=== PATIENT | male | born 1955 | race Caucasian/White ===

== ENCOUNTER 2017-12-26 18:09 | Inpatient (IN) | payer OTHER, SELFPAY ==
[~2017-12-26] VITALS: Ht 180.3 cm; Wt 100.4 kg
[2017-12-26] MEDS ORDERED: BENA20TA4 PO (18:35)
[2017-12-26] MEDS ORDERED: METO25TA35 PO (18:36)
[2017-12-26 18:42] LABS: BASOPHILS # (AUTO) 0.05 x10^3/uL (0-0.1); BASOPHILS % (AUTO) 1 % (0-1); EOSINOPHILS % (AUTO) 3 % (1-7); LYMPHOCYTES # (AUTO) 1.72 x10^3/uL (1-3.4); LYMPHOCYTES % (AUTO) 19 % (22-44); MD NO; MEAN CORPUSCULAR HGB CONC 33.3 g/dL (33.2-36.2); MEAN PLATELET VOLUME 10.2 fL (7.4-10.4); MONOCYTES # (AUTO) 0.73 x10^3/uL (0.2-0.8); MONOCYTES % (AUTO) 8 % (2-9); NEUTROPHILS # (AUTO) 6.33 x10^3/uL (1.8-6.8); NEUTROPHILS % (AUTO) 69 % (42-75); PLATELET COUNT 178 x10^3/uL (130-400); RED BLOOD COUNT 4.78 x10^6/uL (4.38-5.82); RED CELL DISTRIBUTION WIDTH 13.4 % (9.4-14.8)
[2017-12-26] MEDS ORDERED: DILTIAZEM 5 MG/ML, 5ML ONE (18:44)
[2017-12-26 18:50] LABS: INTERNATIONAL NORMALIZED RATIO 1.23 (0.93-1.1); PROTHROMBIN TIME 12.9 Seconds (9.6-11.5)
[2017-12-26 18:51] LABS: ALANINE AMINOTRANSFERASE 43 U/L (12-78); ALBUMIN 3.2 g/dL (3.4-5.0); ANION GAP 9 mmol/L (5-15); CALCIUM 8.1 mg/dL (8.5-10.1); CHLORIDE 111 mmol/L (98-107)
[2017-12-26 18:56] LABS: ALKALINE PHOSPHATASE 84 U/L (45-117); BILIRUBIN,TOTAL 0.6 mg/dL (0.2-1.0); FREE T4 (FREE THYROXINE) 1.31 ng/dL (0.76-1.46); TOTAL PROTEIN 6.3 g/dL (6.4-8.2); TROPONIN I < 0.015 ng/mL (0.000-0.045)
[2017-12-26] MEDS ORDERED: DILTIAZEM 5 MG/ML, 5ML IVPush ONE (19:00)
[2017-12-26] MEDS ORDERED: FUROSEMIDE 40 MG/4 ML IV ONE (19:30)
[2017-12-26] MEDS ORDERED: FUROSEMIDE 40 MG/4 ML ONE (19:39)
[2017-12-26] MEDS ORDERED: SODIUM CHLORIDE 0.9% 1,000 ML IV SCH (20:14)
[2017-12-26] MEDS ORDERED: ACETAMINOPHEN 325 MG TABLET PO PRN (20:30)
[2017-12-26] MEDS ORDERED: ENOXAPARIN 40 MG/0.4 ML SQ SCH (20:30)
[2017-12-26] MEDS ORDERED: POLYETHYLENE GLYCOL 17 GM PACKET PO PRN (20:30)
[2017-12-26] MEDS ORDERED: ONDANSETRON 2MG/ML, 2ML IVPush PRN (20:30)
[2017-12-26] MEDS: METOPROLOL TARTRATE 25 MG TABLET PO SCH (21:47)
[2017-12-26] MEDS: DILTIAZEM 125 MG in SODIUM CHLORIDE 0.9% 100 ML IV SCH (22:04)
[2017-12-26 22:19] VITALS: BP 148/81
[2017-12-26 23:19] LABS: TROPONIN I 0.017 ng/mL (0.000-0.045)
[2017-12-27 00:37] VITALS: BP 110/77
[2017-12-27 02:24] VITALS: BP 111/75
[2017-12-27] MEDS: METOPROLOL TARTRATE 25 MG TABLET PO SCH ×2 (02:24→09:50)
[2017-12-27 05:40] LABS: CHOL/HDL RATIO 3.9; CHOLESTEROL, TOTAL 121 mg/dL (140-239); HDL CHOL % 26 % (26-37); HDL CHOLESTEROL (DIRECT) 31 mg/dL (40-60); LDL CHOLESTEROL,CALCULATED 77 mg/dL (54-169); LDL/HDL RATIO 2.5 (0.5-3.0); TRIGLYCERIDES 64 mg/dL (50-200); TROPONIN I < 0.015 ng/mL (0.000-0.045); VLDL CHOLESTEROL 13 mg/dL (0-25)
[2017-12-27] MEDS: ASPIRIN 325 MG TABLET EC PO SCH (05:40)
[2017-12-27] MEDS: DILTIAZEM 125 MG in SODIUM CHLORIDE 0.9% 100 ML IV SCH (06:16)
[2017-12-27 07:00] VITALS: BP 132/74
[2017-12-27] MEDS ORDERED: REGADENOSON 0.4 MG/5 ML SYRINGE ONE (07:34)
[2017-12-27 07:53] VITALS: BP 116/82
[2017-12-27] MEDS: APIXABAN 5 MG TABLET PO SCH ×2 (09:56→20:44)
[2017-12-27 13:48] VITALS: BP 120/87
[2017-12-27] MEDS ORDERED: ASPI-650 PO ×2 (14:14)
[2017-12-27] MEDS ORDERED: APIX5TAB PO (14:14)
[2017-12-27] MEDS ORDERED: METO25TA35 PO ×2 (14:14)
[2017-12-27] MEDS: METOPROLOL TARTRATE 50 MG TABLET PO SCH (17:15)
[2017-12-27 20:13] VITALS: BP 121/87
[2017-12-27] MEDS: ZOLPIDEM 5MG TABLET PO PRN (20:44)
[2017-12-28] MEDS: DILTIAZEM 5 MG/ML, 5ML IVPush PRN ×4 (01:34→15:07)
[2017-12-28 01:43] VITALS: BP 129/96
[2017-12-28] MEDS: ASPIRIN 325 MG TABLET EC PO SCH (05:38)
[2017-12-28] MEDS: METOPROLOL TARTRATE 50 MG TABLET PO SCH ×2 (05:38→18:12)
[2017-12-28] MEDS ORDERED: DIGOXIN 0.25 MG/ML, 2ML IVPush ONE ×2 (08:30→14:00)
[2017-12-28 08:49] VITALS: BP 129/96
[2017-12-28] MEDS: APIXABAN 5 MG TABLET PO SCH ×2 (10:14→20:33)
[2017-12-28 13:48] VITALS: BP 112/75
[2017-12-28] MEDS ORDERED: DIGOXIN 0.25 MG/ML, 2ML IVPush SCH (14:30)
[2017-12-28] MEDS ORDERED: VERAPAMIL 2.5 MG/ML, 2ML IVPush PRN (16:30)
[2017-12-28 18:11] VITALS: BP 121/87
[2017-12-28 19:50] VITALS: BP 134/88
[2017-12-28] MEDS: ZOLPIDEM 5MG TABLET PO PRN (20:33)
[2017-12-28] MEDS: ATORVASTATIN 10 MG TABLET PO SCH (20:33)
[2017-12-29 00:47] VITALS: BP 134/92
[2017-12-29 04:48] VITALS: BP 127/84
[2017-12-29] MEDS: ASPIRIN 325 MG TABLET EC PO SCH (04:50)
[2017-12-29] MEDS: METOPROLOL TARTRATE 50 MG TABLET PO SCH ×2 (04:50→17:29)
[2017-12-29 08:23] VITALS: BP 129/89
[2017-12-29] MEDS: APIXABAN 5 MG TABLET PO SCH ×2 (08:36→20:31)
[2017-12-29] MEDS ORDERED: DIGOXIN 0.25 MG/ML, 2ML IVPush SCH (09:00)
[2017-12-29] MEDS: AMIODARONE 200 MG TABLET PO SCH ×3 (10:09→20:32)
[2017-12-29] MEDS: DILTIAZEM 5 MG/ML, 5ML IVPush PRN (13:37)
[2017-12-29] MEDS: morphine SULFATE 10 MG/ML, 1ML IVPush PRN ×2 (13:44→20:32)
[2017-12-29 16:38] VITALS: BP 155/103
[2017-12-29 20:30] VITALS: BP 134/97
[2017-12-29] MEDS: ATORVASTATIN 10 MG TABLET PO SCH (20:32)
[2017-12-29] MEDS: ZOLPIDEM 5MG TABLET PO PRN (21:43)
[2017-12-30 01:52] VITALS: BP 137/91
[2017-12-30] MEDS: METOPROLOL TARTRATE 50 MG TABLET PO SCH ×2 (05:49→17:11)
[2017-12-30] MEDS: morphine SULFATE 10 MG/ML, 1ML IVPush PRN ×3 (05:49→20:36)
[2017-12-30] MEDS: ASPIRIN 325 MG TABLET EC PO SCH (05:50)
[2017-12-30 08:37] VITALS: BP 133/90
[2017-12-30] MEDS: AMIODARONE 200 MG TABLET PO SCH ×3 (08:52→20:36)
[2017-12-30] MEDS: APIXABAN 5 MG TABLET PO SCH ×2 (08:52→20:36)
[2017-12-30] MEDS: ASPIRIN 81 MG TABLET EC PO SCH (09:00)
[2017-12-30] MEDS: INDOMETHACIN ER 75 MG CAPSULE PO SCH (11:14)
[2017-12-30] MEDS ORDERED: CYCLOBENZAPRINE 10 MG TABLET PO PRN (13:30)
[2017-12-30 15:58] VITALS: BP 142/99
[2017-12-30 20:26] VITALS: BP 135/96
[2017-12-30] MEDS: ATORVASTATIN 10 MG TABLET PO SCH (20:36)
[2017-12-30] MEDS: ZOLPIDEM 5MG TABLET PO PRN (20:49)
[2017-12-31 01:59] VITALS: BP 129/73
[2017-12-31 04:55] LABS: BASOPHILS # (AUTO) 0.03 x10^3/uL (0-0.1); BASOPHILS % (AUTO) 1 % (0-1); EOSINOPHILS % (AUTO) 6 % (1-7); LYMPHOCYTES # (AUTO) 1.39 x10^3/uL (1-3.4); LYMPHOCYTES % (AUTO) 20 % (22-44); MD NO; MEAN CORPUSCULAR HEMOGLOBIN 31.1 pg (27.5-34.5); MEAN CORPUSCULAR HGB CONC 33.9 g/dL (33.2-36.2); MEAN CORPUSCULAR VOLUME 91.8 fL (81-97); MEAN PLATELET VOLUME 9.8 fL (7.4-10.4); MONOCYTES # (AUTO) 0.88 x10^3/uL (0.2-0.8); MONOCYTES % (AUTO) 12 % (2-9); NEUTROPHILS # (AUTO) 4.43 x10^3/uL (1.8-6.8); NEUTROPHILS % (AUTO) 62 % (42-75); PLATELET COUNT 160 x10^3/uL (130-400); RED BLOOD COUNT 5.06 x10^6/uL (4.38-5.82); RED CELL DISTRIBUTION WIDTH 12.9 % (9.4-14.8)
[2017-12-31 05:02] LABS: ANION GAP 9 mmol/L (5-15); CALCIUM 8.3 mg/dL (8.5-10.1); CHLORIDE 110 mmol/L (98-107); CREATININE 1.07 mg/dL (0.7-1.3)
[2017-12-31] MEDS: ASPIRIN 81 MG TABLET EC PO SCH (05:25)
[2017-12-31] MEDS: METOPROLOL TARTRATE 50 MG TABLET PO SCH ×2 (05:27→16:44)
[2017-12-31] MEDS: morphine SULFATE 10 MG/ML, 1ML IVPush PRN ×2 (05:32→14:15)
[2017-12-31 06:45] VITALS: BP 122/86
[2017-12-31] MEDS: INDOMETHACIN ER 75 MG CAPSULE PO SCH (07:51)
[2017-12-31] MEDS: AMIODARONE 200 MG TABLET PO SCH ×3 (07:51→21:00)
[2017-12-31] MEDS: APIXABAN 5 MG TABLET PO SCH ×2 (07:51→21:00)
[2017-12-31] MEDS: COLCHICINE 0.6 MG TABLET PO SCH (07:51)
[2017-12-31 12:23] VITALS: BP 132/92
[2017-12-31 19:02] VITALS: BP 122/84
[2017-12-31] MEDS: ATORVASTATIN 10 MG TABLET PO SCH (21:00)
[2017-12-31] MEDS: ZOLPIDEM 5MG TABLET PO PRN (21:00)
[2018-01-01 01:22] VITALS: BP 108/70
[2018-01-01] MEDS: ASPIRIN 81 MG TABLET EC PO SCH (05:19)
[2018-01-01] MEDS: METOPROLOL TARTRATE 50 MG TABLET PO SCH (05:19)
[2018-01-01 07:00] VITALS: BP 124/84
[2018-01-01] MEDS ORDERED: METOPROLOL SUCCINATE 100 MG TAB.ER.24H PO SCH (07:30)
[2018-01-01] MEDS ORDERED: LISINOPRIL 10 MG TABLET PO ONE (07:30)
[2018-01-01] MEDS: COLCHICINE 0.6 MG TABLET PO SCH (08:35)
[2018-01-01] MEDS: APIXABAN 5 MG TABLET PO SCH (08:35)
[2018-01-01] MEDS: AMIODARONE 200 MG TABLET PO SCH (08:35)
[2018-01-01] MEDS: INDOMETHACIN ER 75 MG CAPSULE PO SCH (08:36)
[2018-01-01 13:48] VITALS: BP 123/87
[2018-01-01] MEDS ORDERED: ASPI-621 PO (13:52)
[2018-01-01] MEDS ORDERED: ATOR10TA9 PO (13:52)
[2018-01-01] MEDS ORDERED: METO-95 PO (13:52)
[2018-01-01] MEDS ORDERED: AMIO200T42 PO (13:52)
== END 2018-01-01 15:28 | disposition home or self-care (01) | DRG 308 ==
LOC: ED 19:01 → EDIP 19:41 → 5SO 20:36 → DCLOUNGE 01-01 15:13
PROVIDERS: ADMIT Hospitalist; ATTEND Hospitalist
PROC: B245ZZ4 Ultrasonography of Left Heart, Transesophageal (ICD-10-PCS; principal; 2017-12-26)
PROC: 5A2204Z Restoration of Cardiac Rhythm, Single (ICD-10-PCS; 2017-12-26)
DX: I48.0 Paroxysmal atrial fibrillation (principal); I50.43 Acute on chronic combined systolic (congestive) and diastolic (congestive) heart failure; D68.69 Other thrombophilia; E44.0 Moderate protein-calorie malnutrition; I42.9 Cardiomyopathy, unspecified; I08.1 Rheumatic disorders of both mitral and tricuspid valves; I25.10 Atherosclerotic heart disease of native coronary artery without angina pectoris; G89.29 Other chronic pain; M54.9 Dorsalgia, unspecified; I27.20 Pulmonary hypertension, unspecified; M10.9 Gout, unspecified; Z87.891 Personal history of nicotine dependence; Z95.1 Presence of aortocoronary bypass graft; Z68.30 Body mass index [BMI] 30.0-30.9, adult
CPT/HCPCS: 36415; 71045; 78452; 80048; 80053; 80061; 83880; 84439; 84443; 84484; 84550; 85025; 85610; 85730; 92960; 93005; 93017; 93306; 93312; 93320; 93325; 96372; 96374; 96375; G0378; J1650; J1940; J2785; A9502; C9898; J1160; J2270; J7030; J7512

== ENCOUNTER 2018-02-11 07:34 | Day surgery (SDC) | payer OTHER ==
[~2018-02-11] VITALS: Ht 180.3 cm; Wt 97.7 kg
[~2018-02-11 07:34] MED LIST: AMIO200T42 PO; APIX5TAB PO; ASPI-650 PO; ASPI81TA45 PO; ATOR10TA9 PO; BENA20TA4 PO; METO-95 PO; METO25TA35 PO
[2018-02-11 08:11] VITALS: BP 126/96
[2018-02-11] MEDS ORDERED: AMIO200T42 PO (08:19)
[2018-02-11] MEDS ORDERED: BENA20TA4 PO (08:19)
[2018-02-11] MEDS ORDERED: ASPI81TA45 PO (08:24)
[2018-02-11 08:30] LABS: ANION GAP 6 mmol/L (5-15); CALCIUM 8.5 mg/dL (8.5-10.1); CHLORIDE 111 mmol/L (98-107); CREATININE 1.07 mg/dL (0.7-1.3)
[2018-02-11] MEDS ORDERED: PROPOFOL 10 MG/ML, 20ML ONE (09:18)
== END 2018-02-11 10:07 | disposition home or self-care (01) ==
LOC: CACL 07:34
PROVIDERS: ATTEND Internal Medicine Cardiovascular Disease
DX: I48.91 Unspecified atrial fibrillation (principal); I25.10 Atherosclerotic heart disease of native coronary artery without angina pectoris; I10 Essential (primary) hypertension; I42.9 Cardiomyopathy, unspecified; I34.0 Nonrheumatic mitral (valve) insufficiency; E78.2 Mixed hyperlipidemia; Z95.1 Presence of aortocoronary bypass graft; Z98.890 Other specified postprocedural states; Z88.0 Allergy status to penicillin
CPT/HCPCS: 36415; 80048; 92960; 93005; J2704

== ENCOUNTER 2018-04-12 10:10 | Day surgery (SDC) | payer OTHER ==
[~2018-04-12] VITALS: Ht 177.8 cm; Wt 96.8 kg
[~2018-04-12 10:10] MED LIST changes: -BENA20TA4 PO; +BENA20TA54 PO
[2018-04-12] MEDS ORDERED: SODIUM CHLORIDE 0.9% 1,000 ML IV SCH (10:30)
[2018-04-12 10:39] VITALS: BP 125/76
[2018-04-12] MEDS ORDERED: PLEASE ENTER HEIGHT AND WEIGHT MC SCH (11:00)
[2018-04-12] MEDS ORDERED: PROPOFOL 10 MG/ML, 20ML ONE (11:53)
== END 2018-04-12 14:37 | disposition home or self-care (01) ==
LOC: CACL 10:10
PROVIDERS: ATTEND Internal Medicine Cardiovascular Disease
DX: I34.0 Nonrheumatic mitral (valve) insufficiency (principal); I48.91 Unspecified atrial fibrillation; I10 Essential (primary) hypertension; I25.10 Atherosclerotic heart disease of native coronary artery without angina pectoris; I42.9 Cardiomyopathy, unspecified; E78.2 Mixed hyperlipidemia; Z79.82 Long term (current) use of aspirin
CPT/HCPCS: 93312; 93325; J2704; 93321

== ENCOUNTER 2018-04-29 09:53 | Day surgery (SDC) | payer OTHER ==
[~2018-04-29] VITALS: Ht 180.3 cm; Wt 97.7 kg
[2018-04-29 10:24] VITALS: BP 119/72
[2018-04-29] MEDS ORDERED: LIDOCAINE 2%, 20ML ONE (13:04)
[2018-04-29] MEDS ORDERED: BIVALIRUDIN 250 MG ONE (13:04)
[2018-04-29] MEDS ORDERED: FENTANYL PF 100 MCG/2ML ONE (13:04)
[2018-04-29] MEDS ORDERED: VERAPAMIL 2.5 MG/ML, 2ML ONE (13:04)
[2018-04-29] MEDS ORDERED: MIDAZOLAM 1 MG/ML, 5ML ONE (13:04)
[2018-04-29] MEDS ORDERED: HEPARIN 1,000 UNITS/ML, 10ML ONE (13:04)
[2018-04-29] MEDS ORDERED: SODIUM CHLORIDE 0.9% 1,000 ML IV SCH (14:30)
== END 2018-04-29 16:55 | disposition home or self-care (01) ==
LOC: CACL 09:53
PROVIDERS: ATTEND Internal Medicine Cardiovascular Disease
DX: I25.10 Atherosclerotic heart disease of native coronary artery without angina pectoris (principal); I34.0 Nonrheumatic mitral (valve) insufficiency; I48.91 Unspecified atrial fibrillation; E78.5 Hyperlipidemia, unspecified; I10 Essential (primary) hypertension; I42.9 Cardiomyopathy, unspecified; Z95.1 Presence of aortocoronary bypass graft; Z79.82 Long term (current) use of aspirin
CPT/HCPCS: 93459; 99156; 99157; C1760; C1769; C1894; J2250; J3010; J3490; Q9967; J0583; J1644

== ENCOUNTER → 2018-06-12 | Outpatient (CLI) | payer OTHER ==
[~2018-06-12] MED LIST changes: +OMNIPAQUE 350 MG/ML, 100ML BOTTLE ONE
== END | disposition home or self-care (01) ==
LOC: CFH 14:24
PROVIDERS: ATTEND Thoracic Surgery (Cardiothoracic Vascular Surgery)
DX: I51.7 Cardiomegaly (principal); I25.10 Atherosclerotic heart disease of native coronary artery without angina pectoris; Z95.1 Presence of aortocoronary bypass graft
CPT/HCPCS: 71275; Q9967

== ENCOUNTER 2018-06-28 04:16 | Inpatient (IN) | payer OTHER ==
[2018-06-27 11:56] LABS: MICROSCOPIC NOT IND
[2018-06-27 13:09] LABS: ALBUMIN 3.9 g/dL (3.4-5.0); ANION GAP 9 mmol/L (5-15); CALCIUM 8.6 mg/dL (8.5-10.1); CHLORIDE 111 mmol/L (98-107)
[2018-06-27 13:11] LABS: BASOPHILS # (AUTO) 0.04 x10^3/uL (0-0.1); BASOPHILS % (AUTO) 1 % (0-1); EOSINOPHILS # (AUTO) 0.28 x10^3/uL (0-0.4); EOSINOPHILS % (AUTO) 4 % (1-7); LYMPHOCYTES # (AUTO) 1.26 x10^3/uL (1-3.4); LYMPHOCYTES % (AUTO) 20 % (22-44); MD NO; MEAN CORPUSCULAR HEMOGLOBIN 32.9 pg (27.5-34.5); MEAN CORPUSCULAR HGB CONC 33.6 g/dL (33.2-36.2); MEAN PLATELET VOLUME 10.3 fL (7.4-10.4); MONOCYTES # (AUTO) 0.69 x10^3/uL (0.2-0.8); MONOCYTES % (AUTO) 11 % (2-9); NEUTROPHILS # (AUTO) 4.11 x10^3/uL (1.8-6.8); NEUTROPHILS % (AUTO) 65 % (42-75); PLATELET COUNT 134 x10^3/uL (130-400); RED BLOOD COUNT 5.15 x10^6/uL (4.38-5.82); RED CELL DISTRIBUTION WIDTH 13.4 % (9.4-14.8)
[2018-06-27 13:13] LABS: ALANINE AMINOTRANSFERASE 22 U/L (12-78); ALKALINE PHOSPHATASE 72 U/L (45-117); BILIRUBIN,TOTAL 0.4 mg/dL (0.2-1.0); CREATININE 1.05 mg/dL (0.7-1.3)
[2018-06-27 13:17] LABS: HEMOGLOBIN A1C 5.2 % (4.2-6.3)
[2018-06-27 13:25] LABS: INTERNATIONAL NORMALIZED RATIO 1.03 (0.93-1.1); PROTHROMBIN TIME 10.8 Seconds (9.6-11.5)
[~2018-06-28] VITALS: Ht 180.3 cm; Wt 106.6 kg
[~2018-06-28 04:16] MED LIST changes: +ACET650T10 PO; +CETI10CA PO; -OMNIPAQUE 350 MG/ML, 100ML BOTTLE ONE
[2018-06-28 04:42] VITALS: BP_SYST 158; BP_SYST 160; BP_DIAS 101; BP_DIAS 92
[2018-06-28] MEDS ORDERED: DO NOT GIVE MC SCH (06:00)
[2018-06-28] MEDS ORDERED: CHLORHEXIDINE 15 ML UDC MM SCH (06:00)
[2018-06-28] MEDS ORDERED: INSULIN LISPRO 100 UNITS/ML, PEN SQ-INSULIN SCH (06:00)
[2018-06-28] MEDS: MUPIROCIN OINT 2%, 22GM TP SCH ×2 (06:19→20:39)
[2018-06-28] MEDS ORDERED: FENTANYL PF 250 MCG/5ML ONE ×4 (07:19→07:20)
[2018-06-28] MEDS ORDERED: MIDAZOLAM 10MG/2 ML ONE (07:19)
[2018-06-28] MEDS ORDERED: ALBUMIN HUMAN 5% 500 ML IV PRN (07:30)
[2018-06-28] MEDS ORDERED: EPINEPHRINE 2 MG in SODIUM CHLORIDE 0.9% 248 ML IV SCH (07:30)
[2018-06-28] MEDS ORDERED: MANNITOL PMX 20% 500 ML IVPB PRN (07:30)
[2018-06-28] MEDS ORDERED: DEXMEDETOMIDINE 200 MCG in SODIUM CHLORIDE 0.9% 48 ML IV SCH (07:30)
[2018-06-28] MEDS ORDERED: REGULAR INSULIN 62.5 UNITS in SODIUM CHLORIDE 0.9% 249.375 ML IV PRN ×2 (07:30→10:22)
[2018-06-28] MEDS ORDERED: VANCOMYCIN 1,500 MG in SODIUM CHLORIDE 0.9% 250 ML IV PRN (07:30)
[2018-06-28] MEDS ORDERED: POTASSIUM CHLORIDE 80 MEQ, SODIUM BICARBONATE 8.4% 10 MEQ, MAGNESIUM SULFATE 0.5 GM, LI... IV PRN (07:30)
[2018-06-28] MEDS ORDERED: PHENYLEPHRINE 10 MG in SODIUM CHLORIDE 0.9% 249 ML IV PRN ×2 (07:30→10:22)
[2018-06-28] MEDS ORDERED: PROTAMINE SULFATE 10 MG/ML, 25ML ONE ×2 (07:48)
[2018-06-28] MEDS: SODIUM CHLORIDE FLUSH 10ML SYR IVF SCH ×3 (09:00→20:31)
[2018-06-28] MEDS: DOCUSATE 100 MG CAPSULE PO SCH ×2 (09:00→20:38)
[2018-06-28] MEDS ORDERED: AMINOCAPROIC ACID 250 MG/ML, 20ML ONE ×2 (09:54)
[2018-06-28] MEDS ORDERED: VASOPRESSIN 20 UNIT/ML, 1ML ONE (09:54)
[2018-06-28] MEDS ORDERED: PROPOFOL 10 MG/ML, 20ML ONE (09:54)
[2018-06-28] MEDS ORDERED: ROCURONIUM 10MG/ML,5ML ONE ×2 (09:57)
[2018-06-28] MEDS ORDERED: KETOROLAC 30 MG/1 ML IM SCH (10:00)
[2018-06-28] MEDS ORDERED: LACTATED RINGERS 1,000 ML IV SCH (10:22)
[2018-06-28] MEDS ORDERED: SODIUM CHLORIDE 0.9% 1,000 ML IV PRN (10:22)
[2018-06-28] MEDS ORDERED: VASOPRESSIN 50 UNIT in SODIUM CHLORIDE 0.9% 247.5 ML IV PRN (10:22)
[2018-06-28] MEDS ORDERED: DOBUTAMINE 250 MG in SODIUM CHLORIDE 0.9% 230 ML IV PRN (10:22)
[2018-06-28] MEDS ORDERED: DEXMEDETOMIDINE 200 MCG in SODIUM CHLORIDE 0.9% 48 ML IV PRN (10:22)
[2018-06-28] MEDS ORDERED: NITROGLYCERIN/D5W PMX 250 ML IV PRN (10:22)
[2018-06-28] MEDS ORDERED: PROCHLORPERAZINE 5 MG/ML, 2ML IVPush PRN (10:30)
[2018-06-28] MEDS ORDERED: SODIUM BICARB 8.4%, 50ML SYRINGE IV PRN (10:30)
[2018-06-28] MEDS ORDERED: DEXTROSE 4 GM TAB.CHEW PO PRN (10:30)
[2018-06-28] MEDS ORDERED: MIDAZOLAM 1 MG/ML, 5ML IVPush PRN (10:30)
[2018-06-28] MEDS ORDERED: GLUCAGON 1 MG IM PRN (10:30)
[2018-06-28] MEDS ORDERED: BISACODYL 10 MG SUPP PR PRN (10:30)
[2018-06-28] MEDS: KSCALE TO 4.5 IV SCH ×3 (10:30→22:30)
[2018-06-28] MEDS ORDERED: EPINEPHRINE 2 MG in SODIUM CHLORIDE 0.9% 248 ML IV PRN (10:30)
[2018-06-28] MEDS ORDERED: LACTATED RINGERS 1,000 ML IV PRN (10:30)
[2018-06-28] MEDS ORDERED: BISACODYL 5 MG EC TABLET PO PRN (10:30)
[2018-06-28] MEDS ORDERED: DEXTROSE 50%, 50ML SYRINGE IVPush PRN (10:30)
[2018-06-28] MEDS ORDERED: ACETAMINOPHEN 650 MG SUPP PR PRN (10:30)
[2018-06-28] MEDS ORDERED: INSULIN REGULAR 100 UNITS/ML, 3ML VIAL IVPush PRN (10:30)
[2018-06-28] MEDS ORDERED: ACETAMINOPHEN 325 MG TABLET PO PRN (10:30)
[2018-06-28] MEDS: INSULIN LISPRO 100 UNITS/ML, PEN SQ-INSULIN SCH ×4 (11:00→20:38)
[2018-06-28 12:44] LABS: GLUCOSE BY BLOOD GAS ANALYZER 122 mg/dL (70-110); HEMOGLOBIN BY BLOOD GAS ANALYZ 13.8 g/dL (14.0-18.0); POTASSIUM BY BLOOD GAS ANALYZR 4.1 mmol/L (3.6-5.5)
[2018-06-28] MEDS: MAGNESIUM SULFATE 1 GM in SODIUM CHLORIDE 0.9% 50 ML IVPB SCH (12:47)
[2018-06-28] MEDS: morphine SULFATE 10 MG/ML, 1ML IVPush PRN ×3 (15:49→19:47)
[2018-06-28] MEDS: OXYcodone IR 5MG TABLET PO PRN ×3 (17:00→22:33)
[2018-06-28] MEDS ORDERED: HEPARIN 1,000 UNITS/ML, 30ML ONE (17:22)
[2018-06-28] MEDS ORDERED: LIDOCAINE 2% 100MG/5ML SYRINGE ONE (17:22)
[2018-06-28] MEDS ORDERED: ALBUMIN HUMAN 25% 50 ML ONE (17:22)
[2018-06-28] MEDS ORDERED: methylPREDNISolone SOD SUCC 125 MG/2 ML ONE (17:22)
[2018-06-28] MEDS: ONDANSETRON 2MG/ML, 2ML IVPush PRN (19:47)
[2018-06-28] MEDS: VANCOMYCIN 1,500 MG in SODIUM CHLORIDE 0.9% 250 ML IVPB SCH (19:48)
[2018-06-28] MEDS: MUPIROCIN OINT 2%, 22GM NAS SCH (20:41)
[2018-06-29] MEDS: OXYcodone IR 5MG TABLET PO PRN ×8 (00:01→21:46)
[2018-06-29] MEDS: KSCALE TO 4.5 IV SCH (04:30)
[2018-06-29] MEDS: HYDROcodone/APAP 5/325 TABLET PO PRN ×5 (04:40→20:15)
[2018-06-29 04:42] LABS: BASOPHILS # (AUTO) 0.01 x10^3/uL (0-0.1); BASOPHILS % (AUTO) 0 % (0-1); EOSINOPHILS % (AUTO) 0 % (1-7); LYMPHOCYTES # (AUTO) 0.46 x10^3/uL (1-3.4); LYMPHOCYTES % (AUTO) 4 % (22-44); MD NO; MEAN CORPUSCULAR HEMOGLOBIN 32.9 pg (27.5-34.5); MEAN CORPUSCULAR VOLUME 99.7 fL (81-97); MEAN PLATELET VOLUME 10.4 fL (7.4-10.4); MONOCYTES # (AUTO) 0.83 x10^3/uL (0.2-0.8); MONOCYTES % (AUTO) 8 % (2-9); NEUTROPHILS # (AUTO) 9.05 x10^3/uL (1.8-6.8); NEUTROPHILS % (AUTO) 88 % (42-75); PLATELET COUNT 106 x10^3/uL (130-400); RED BLOOD COUNT 4.09 x10^6/uL (4.38-5.82); RED CELL DISTRIBUTION WIDTH 13.7 % (9.4-14.8)
[2018-06-29 04:43] LABS: ALBUMIN 3.2 g/dL (3.4-5.0); ANION GAP 10 mmol/L (5-15); CALCIUM 7.4 mg/dL (8.5-10.1); CHLORIDE 113 mmol/L (98-107); CREATININE 0.88 mg/dL (0.7-1.3); INTERNATIONAL NORMALIZED RATIO 1.09 (0.93-1.1); PROTHROMBIN TIME 11.4 Seconds (9.6-11.5)
[2018-06-29] MEDS: INSULIN LISPRO 100 UNITS/ML, PEN SQ-INSULIN SCH ×4 (06:10→19:43)
[2018-06-29] MEDS ORDERED: CEFUROXIME 1.5 GM in SODIUM CHLORIDE 0.9% 50 ML IVPB PRN (07:30)
[2018-06-29] MEDS: VANCOMYCIN 1,500 MG in SODIUM CHLORIDE 0.9% 250 ML IVPB SCH (07:41)
[2018-06-29] MEDS: SODIUM CHLORIDE FLUSH 10ML SYR IVF SCH ×2 (08:39→20:17)
[2018-06-29] MEDS: MUPIROCIN OINT 2%, 22GM NAS SCH ×2 (08:46→20:16)
[2018-06-29] MEDS: DOCUSATE 100 MG CAPSULE PO SCH ×2 (08:47→20:15)
[2018-06-29] MEDS: ASPIRIN 81 MG TABLET EC PO SCH (08:47)
[2018-06-29] MEDS: MUPIROCIN OINT 2%, 22GM TP SCH ×2 (08:47→19:43)
[2018-06-29] MEDS: WARFARIN BIOPROSTHETIC VALVE PROTOCOL 2-3 XX SCH (08:54)
[2018-06-29] MEDS: BENAZEPRIL 10 MG TABLET PO SCH (09:00)
[2018-06-29] MEDS ORDERED: BENAZEPRIL 20 MG TABLET ONE (09:21)
[2018-06-29] MEDS: ONDANSETRON 2MG/ML, 2ML IVPush PRN ×3 (09:56→18:25)
[2018-06-29] MEDS: MAGNESIUM SULFATE 1 GM in SODIUM CHLORIDE 0.9% 50 ML IVPB SCH (10:55)
[2018-06-29] MEDS ORDERED: HYDROmorphone 4MG TABLET ONE (15:49)
[2018-06-29] MEDS: HYDROmorphone 2MG TABLET PO PRN ×2 (15:54→23:27)
[2018-06-29] MEDS: WARFARIN 7.5 MG TABLET PO-COUM ONE ×2 (17:31→17:34)
[2018-06-29 18:45] VITALS: BP 126/79
[2018-06-29] MEDS: CHLORHEXIDINE 15 ML UDC MM SCH (20:16)
[2018-06-29 23:54] VITALS: BP 131/83
[2018-06-30 00:29] VITALS: BP 116/75
[2018-06-30] MEDS: KETOROLAC 30 MG/1 ML IVPush SCH ×4 (00:29→17:10)
[2018-06-30 05:56] LABS: MEAN CORPUSCULAR HEMOGLOBIN 33.1 pg (27.5-34.5); MEAN CORPUSCULAR HGB CONC 33.8 g/dL (33.2-36.2); MEAN CORPUSCULAR VOLUME 97.9 fL (81-97); RED BLOOD COUNT 3.76 x10^6/uL (4.38-5.82); RED CELL DISTRIBUTION WIDTH 13.6 % (9.4-14.8)
[2018-06-30 05:57] LABS: INTERNATIONAL NORMALIZED RATIO 1.04 (0.93-1.1); PROTHROMBIN TIME 10.9 Seconds (9.6-11.5)
[2018-06-30 06:00] LABS: ANION GAP 4 mmol/L (5-15); CALCIUM 8.1 mg/dL (8.5-10.1); CHLORIDE 105 mmol/L (98-107)
[2018-06-30 06:01] LABS: CREATININE 0.84 mg/dL (0.7-1.3)
[2018-06-30 06:24] LABS: BASOPHILS # (AUTO) 0.01 x10^3/uL (0-0.1); BASOPHILS % (AUTO) 0 % (0-1); EOSINOPHILS # (AUTO) 0.01 x10^3/uL (0-0.4); EOSINOPHILS % (AUTO) 0 % (1-7); LYMPHOCYTES % (AUTO) 8 % (22-44); MD SCAN; MEAN PLATELET VOLUME 9.5 fL (7.4-10.4); MONOCYTES # (AUTO) 0.79 x10^3/uL (0.2-0.8); MONOCYTES % (AUTO) 6 % (2-9); NEUTROPHILS # (AUTO) 10.47 x10^3/uL (1.8-6.8); NEUTROPHILS % (AUTO) 85 % (42-75); PLATELET COUNT 95 x10^3/uL (130-400)
[2018-06-30] MEDS: INSULIN LISPRO 100 UNITS/ML, PEN SQ-INSULIN SCH ×4 (07:00→20:40)
[2018-06-30] MEDS: WARFARIN BIOPROSTHETIC VALVE PROTOCOL 2-3 XX SCH (08:12)
[2018-06-30] MEDS ORDERED: BENAZEPRIL 5 MG TABLET ONE (08:17)
[2018-06-30] MEDS: OXYcodone IR 5MG TABLET PO PRN ×3 (08:20→20:35)
[2018-06-30] MEDS: POTASSIUM CHLORIDE 10 MEQ TABLET.ER PO SCH (08:20)
[2018-06-30] MEDS: DOCUSATE 100 MG CAPSULE PO SCH ×2 (08:20→20:35)
[2018-06-30] MEDS: ASPIRIN 81 MG TABLET EC PO SCH (08:20)
[2018-06-30] MEDS: SODIUM CHLORIDE FLUSH 10ML SYR IVF SCH ×2 (08:21→20:37)
[2018-06-30] MEDS: CHLORHEXIDINE 15 ML UDC MM SCH ×2 (08:21→20:34)
[2018-06-30] MEDS: MUPIROCIN OINT 2%, 22GM NAS SCH ×2 (08:22→20:34)
[2018-06-30 08:37] VITALS: BP 118/71
[2018-06-30] MEDS ORDERED: FUROSEMIDE 20 MG/2 ML IV SCH (09:00)
[2018-06-30] MEDS: BENAZEPRIL 10 MG TABLET PO SCH (09:25)
[2018-06-30] MEDS ORDERED: AMIODARONE 150 MG in DEXTROSE 5% 100 ML IV ONE (10:30)
[2018-06-30] MEDS ORDERED: AMIODARONE 900 MG in DEXTROSE 5% 482 ML IV PRN (10:30)
[2018-06-30] MEDS ORDERED: FILTER 0.22 MICRON IV ONE (11:00)
[2018-06-30] MEDS: ONDANSETRON 2MG/ML, 2ML IVPush PRN (12:15)
[2018-06-30] MEDS: MAGNESIUM SULFATE 1 GM in SODIUM CHLORIDE 0.9% 50 ML IVPB SCH (12:19)
[2018-06-30 16:22] VITALS: BP 102/68
[2018-06-30] MEDS ORDERED: WARFARIN 7.5 MG TABLET PO-COUM ONE (18:00)
[2018-06-30] MEDS: AMIODARONE 450 MG in DEXTROSE 5% 241 ML IV PRN (20:14)
[2018-06-30 20:19] VITALS: BP 99/69
[2018-06-30 22:10] VITALS: BP 116/79
[2018-07-01] MEDS: KETOROLAC 30 MG/1 ML IVPush SCH ×5 (00:08→23:33)
[2018-07-01 00:21] VITALS: BP 120/78
[2018-07-01] MEDS: OXYcodone IR 5MG TABLET PO PRN ×5 (02:45→20:03)
[2018-07-01 06:54] LABS: MEAN CORPUSCULAR HEMOGLOBIN 33.4 pg (27.5-34.5); MEAN CORPUSCULAR VOLUME 98.3 fL (81-97); PLATELET COUNT 96 x10^3/uL (130-400); RED BLOOD COUNT 3.57 x10^6/uL (4.38-5.82); RED CELL DISTRIBUTION WIDTH 13.4 % (9.4-14.8)
[2018-07-01 07:15] LABS: ANION GAP 4 mmol/L (5-15); CALCIUM 7.7 mg/dL (8.5-10.1); CHLORIDE 107 mmol/L (98-107)
[2018-07-01 07:16] LABS: CREATININE 0.74 mg/dL (0.7-1.3)
[2018-07-01 07:20] LABS: BASOPHILS # (AUTO) 0.02 x10^3/uL (0-0.1); BASOPHILS % (AUTO) 0 % (0-1); EOSINOPHILS # (AUTO) 0.13 x10^3/uL (0-0.4); EOSINOPHILS % (AUTO) 2 % (1-7); LYMPHOCYTES # (AUTO) 0.87 x10^3/uL (1-3.4); LYMPHOCYTES % (AUTO) 11 % (22-44); MD SCAN; MONOCYTES # (AUTO) 0.72 x10^3/uL (0.2-0.8); MONOCYTES % (AUTO) 9 % (2-9); NEUTROPHILS # (AUTO) 6.11 x10^3/uL (1.8-6.8); NEUTROPHILS % (AUTO) 78 % (42-75)
[2018-07-01] MEDS ORDERED: FILTER 0.22 MICRON IV PRN (07:30)
[2018-07-01 07:52] VITALS: BP 125/80
[2018-07-01] MEDS: FUROSEMIDE 40 MG/4 ML IV SCH (08:20)
[2018-07-01] MEDS: SODIUM CHLORIDE FLUSH 10ML SYR IVF SCH ×2 (08:20→20:03)
[2018-07-01] MEDS ORDERED: BENAZEPRIL 5 MG TABLET ONE (08:26)
[2018-07-01] MEDS: DOCUSATE 100 MG CAPSULE PO SCH ×2 (08:28→20:04)
[2018-07-01] MEDS: CHLORHEXIDINE 15 ML UDC MM SCH (08:28)
[2018-07-01] MEDS: BENAZEPRIL 10 MG TABLET PO SCH (08:28)
[2018-07-01] MEDS: POTASSIUM CHLORIDE 20 MEQ TAB.ER.PRT PO SCH (08:28)
[2018-07-01] MEDS: ASPIRIN 81 MG TABLET EC PO SCH (08:28)
[2018-07-01] MEDS: MUPIROCIN OINT 2%, 22GM NAS SCH ×2 (08:29→20:02)
[2018-07-01] MEDS ORDERED: AMIODARONE 150 MG in DEXTROSE 5% 100 ML IV ONE ×2 (08:30→17:30)
[2018-07-01] MEDS: POTASSIUM CHLORIDE 10 MEQ TABLET.ER PO SCH (09:00)
[2018-07-01] MEDS: AMIODARONE 450 MG in DEXTROSE 5% 241 ML IV PRN ×2 (10:52→19:51)
[2018-07-01] MEDS: WARFARIN BIOPROSTHETIC VALVE PROTOCOL 2-3 XX SCH (11:47)
[2018-07-01 11:48] LABS: PROTHROMBIN TIME 10.5 Seconds (9.6-11.5)
[2018-07-01 12:56] VITALS: BP 124/74
[2018-07-01] MEDS ORDERED: METOPROLOL 1 MG/ML, 5ML IVPush STA (16:14)
[2018-07-01] MEDS ORDERED: METOPROLOL 1 MG/ML, 5ML ONE (16:18)
[2018-07-01] MEDS: HYDROcodone/APAP 5/325 TABLET PO PRN (16:46)
[2018-07-01] MEDS: METOPROLOL SUCCINATE 25 MG TAB.ER.24H PO SCH (16:53)
[2018-07-01] MEDS ORDERED: AMIODARONE 50 MG/ML, 3ML IVPush ONE (17:30)
[2018-07-01] MEDS ORDERED: WARFARIN 7.5 MG TABLET PO-COUM ONE (18:00)
[2018-07-01 19:57] VITALS: BP 131/91
[2018-07-01] MEDS: AMIODARONE 200 MG TABLET PO SCH (20:04)
[2018-07-02 01:05] VITALS: BP 141/92
[2018-07-02] MEDS: OXYcodone IR 5MG TABLET PO PRN ×4 (01:09→22:48)
[2018-07-02] MEDS: AMIODARONE 450 MG in DEXTROSE 5% 241 ML IV PRN (03:53)
[2018-07-02 05:45] LABS: BASOPHILS # (AUTO) 0.02 x10^3/uL (0-0.1); BASOPHILS % (AUTO) 0 % (0-1); EOSINOPHILS # (AUTO) 0.22 x10^3/uL (0-0.4); EOSINOPHILS % (AUTO) 3 % (1-7); LYMPHOCYTES # (AUTO) 0.74 x10^3/uL (1-3.4); LYMPHOCYTES % (AUTO) 10 % (22-44); MD NO; MEAN CORPUSCULAR HEMOGLOBIN 33.1 pg (27.5-34.5); MEAN CORPUSCULAR HGB CONC 33.7 g/dL (33.2-36.2); MEAN CORPUSCULAR VOLUME 98.2 fL (81-97); MEAN PLATELET VOLUME 9.6 fL (7.4-10.4); MONOCYTES # (AUTO) 0.66 x10^3/uL (0.2-0.8); MONOCYTES % (AUTO) 9 % (2-9); NEUTROPHILS % (AUTO) 77 % (42-75); PLATELET COUNT 103 x10^3/uL (130-400); RED BLOOD COUNT 3.69 x10^6/uL (4.38-5.82); RED CELL DISTRIBUTION WIDTH 13.3 % (9.4-14.8)
[2018-07-02] MEDS: KETOROLAC 30 MG/1 ML IVPush SCH ×3 (05:46→17:30)
[2018-07-02] MEDS: METOPROLOL SUCCINATE 25 MG TAB.ER.24H PO SCH (05:46)
[2018-07-02 05:55] LABS: INTERNATIONAL NORMALIZED RATIO 1.32 (0.93-1.1); PROTHROMBIN TIME 13.7 Seconds (9.6-11.5)
[2018-07-02 06:00] LABS: ANION GAP 4 mmol/L (5-15); CALCIUM 8.1 mg/dL (8.5-10.1); CHLORIDE 106 mmol/L (98-107)
[2018-07-02 08:17] VITALS: BP 131/99
[2018-07-02] MEDS: MUPIROCIN OINT 2%, 22GM NAS SCH ×2 (09:00→21:00)
[2018-07-02] MEDS: SODIUM CHLORIDE FLUSH 10ML SYR IVF SCH ×2 (09:00→21:14)
[2018-07-02] MEDS: BENAZEPRIL 10 MG TABLET PO SCH (09:00)
[2018-07-02] MEDS: WARFARIN BIOPROSTHETIC VALVE PROTOCOL 2-3 XX SCH (09:00)
[2018-07-02] MEDS: POTASSIUM CHLORIDE 10 MEQ TABLET.ER PO SCH (09:00)
[2018-07-02] MEDS ORDERED: BENAZEPRIL 5 MG TABLET ONE (09:18)
[2018-07-02] MEDS: AMIODARONE 200 MG TABLET PO SCH ×3 (09:27→21:12)
[2018-07-02] MEDS: ASPIRIN 81 MG TABLET EC PO SCH (09:27)
[2018-07-02] MEDS: POTASSIUM CHLORIDE 20 MEQ TAB.ER.PRT PO SCH (09:27)
[2018-07-02] MEDS: DOCUSATE 100 MG CAPSULE PO SCH ×2 (09:27→21:11)
[2018-07-02] MEDS: FUROSEMIDE 40 MG/4 ML IV SCH (09:27)
[2018-07-02] MEDS ORDERED: AMIODARONE IV PRN (12:00)
[2018-07-02] MEDS ORDERED: DEXTROSE 5% IV PRN (12:00)
[2018-07-02 13:25] VITALS: BP 110/75
[2018-07-02] MEDS: METOPROLOL TARTRATE 50 MG TABLET PO SCH (17:29)
[2018-07-02] MEDS ORDERED: WARFARIN 7.5 MG TABLET PO-COUM ONE (18:00)
[2018-07-02 20:54] VITALS: BP 137/90
[2018-07-02] MEDS: HYDROcodone/APAP 5/325 TABLET PO PRN (21:15)
[2018-07-03] MEDS: KETOROLAC 30 MG/1 ML IVPush SCH ×3 (00:35→12:16)
[2018-07-03 00:42] VITALS: BP 161/95
[2018-07-03 06:03] LABS: BASOPHILS # (AUTO) 0.01 x10^3/uL (0-0.1); BASOPHILS % (AUTO) 0 % (0-1); EOSINOPHILS # (AUTO) 0.38 x10^3/uL (0-0.4); EOSINOPHILS % (AUTO) 6 % (1-7); LYMPHOCYTES # (AUTO) 0.87 x10^3/uL (1-3.4); LYMPHOCYTES % (AUTO) 13 % (22-44); MD NO; MEAN CORPUSCULAR HEMOGLOBIN 32.9 pg (27.5-34.5); MEAN CORPUSCULAR HGB CONC 33.4 g/dL (33.2-36.2); MEAN CORPUSCULAR VOLUME 98.7 fL (81-97); MEAN PLATELET VOLUME 9.4 fL (7.4-10.4); MONOCYTES # (AUTO) 0.73 x10^3/uL (0.2-0.8); MONOCYTES % (AUTO) 11 % (2-9); NEUTROPHILS # (AUTO) 4.58 x10^3/uL (1.8-6.8); NEUTROPHILS % (AUTO) 70 % (42-75); PLATELET COUNT 125 x10^3/uL (130-400); RED BLOOD COUNT 3.61 x10^6/uL (4.38-5.82); RED CELL DISTRIBUTION WIDTH 13.4 % (9.4-14.8)
[2018-07-03 06:09] LABS: INTERNATIONAL NORMALIZED RATIO 1.97 (0.93-1.1); PROTHROMBIN TIME 20.2 Seconds (9.6-11.5)
[2018-07-03 06:10] LABS: ANION GAP 3 mmol/L (5-15); CALCIUM 8.2 mg/dL (8.5-10.1); CHLORIDE 105 mmol/L (98-107)
[2018-07-03 06:11] LABS: CREATININE 0.94 mg/dL (0.7-1.3)
[2018-07-03] MEDS: METOPROLOL TARTRATE 50 MG TABLET PO SCH (06:19)
[2018-07-03] MEDS: WARFARIN BIOPROSTHETIC VALVE PROTOCOL 2-3 XX SCH (07:10)
[2018-07-03] MEDS ORDERED: BENAZEPRIL 20 MG TABLET ONE (08:04)
[2018-07-03] MEDS: POTASSIUM CHLORIDE 10 MEQ TABLET.ER PO SCH (08:05)
[2018-07-03] MEDS: SODIUM CHLORIDE FLUSH 10ML SYR IVF SCH (08:06)
[2018-07-03] MEDS: DOCUSATE 100 MG CAPSULE PO SCH (08:11)
[2018-07-03] MEDS: AMIODARONE 200 MG TABLET PO SCH (08:11)
[2018-07-03] MEDS: POTASSIUM CHLORIDE 20 MEQ TAB.ER.PRT PO SCH (08:11)
[2018-07-03] MEDS: ASPIRIN 81 MG TABLET EC PO SCH (08:11)
[2018-07-03] MEDS: FUROSEMIDE 40 MG/4 ML IV SCH (08:11)
[2018-07-03] MEDS: MUPIROCIN OINT 2%, 22GM NAS SCH (08:12)
[2018-07-03] MEDS: BENAZEPRIL 10 MG TABLET PO SCH (08:15)
[2018-07-03 08:33] VITALS: BP 156/96
[2018-07-03] MEDS ORDERED: AMIO200T42 PO (08:48)
[2018-07-03] MEDS ORDERED: POTA20TA14 PO (08:48)
[2018-07-03] MEDS ORDERED: ASPI81TA45 PO (08:48)
[2018-07-03] MEDS ORDERED: HYDR-3237 PO (08:48)
[2018-07-03] MEDS ORDERED: FURO-92 PO (08:48)
[2018-07-03] MEDS ORDERED: WARF5TAB PO-COUM (08:48)
[2018-07-03] MEDS: HYDROcodone/APAP 5/325 TABLET PO PRN ×2 (12:17→16:12)
[2018-07-03] MEDS ORDERED: HYDR-3240 PO (15:59)
[2018-07-03] MEDS ORDERED: WARFARIN 5 MG TABLET PO-COUM ONE (18:00)
== END 2018-07-03 16:41 | disposition home health service (06) | DRG 220 ==
LOC: 5SO 04:16 → CSU 09:32 → 5SO 06-29 10:46 → DCLOUNGE 07-03 16:16
PROVIDERS: ADMIT Thoracic Surgery (Cardiothoracic Vascular Surgery); ATTEND Thoracic Surgery (Cardiothoracic Vascular Surgery)
PROC: 4A133B3 Monitoring of Arterial Pressure, Pulmonary, Percutaneous Approach (ICD-10-PCS; 2018-06-28)
PROC: 02HQ32Z Insertion of Monitoring Device into Right Pulmonary Artery, Percutaneous Approach (ICD-10-PCS; 2018-06-28)
PROC: 02HV33Z Insertion of Infusion Device into Superior Vena Cava, Percutaneous Approach (ICD-10-PCS; 2018-06-28)
PROC: B548ZZA Ultrasonography of Superior Vena Cava, Guidance (ICD-10-PCS; 2018-06-28)
PROC: 5A1221Z Performance of Cardiac Output, Continuous (ICD-10-PCS; 2018-06-28)
PROC: B246ZZ4 Ultrasonography of Right and Left Heart, Transesophageal (ICD-10-PCS; 2018-06-28)
PROC: 02L70ZK Occlusion of Left Atrial Appendage, Open Approach (ICD-10-PCS; 2018-06-28)
PROC: 5A1223Z Performance of Cardiac Pacing, Continuous (ICD-10-PCS; 2018-06-28)
PROC: 02UG08Z Supplement Mitral Valve with Zooplastic Tissue, Open Approach (ICD-10-PCS; principal; 2018-06-28 07:30)
DX: I34.1 Nonrheumatic mitral (valve) prolapse (principal); I48.1 Persistent atrial fibrillation; I50.42 Chronic combined systolic (congestive) and diastolic (congestive) heart failure; I34.0 Nonrheumatic mitral (valve) insufficiency; E78.00 Pure hypercholesterolemia, unspecified; E78.5 Hyperlipidemia, unspecified; I11.0 Hypertensive heart disease with heart failure; I25.10 Atherosclerotic heart disease of native coronary artery without angina pectoris; I25.5 Ischemic cardiomyopathy; Z79.01 Long term (current) use of anticoagulants; Z79.899 Other long term (current) drug therapy; Z82.49 Family history of ischemic heart disease and other diseases of the circulatory system; Z87.891 Personal history of nicotine dependence; Z95.1 Presence of aortocoronary bypass graft; R06.89 Other abnormalities of breathing; Z88.0 Allergy status to penicillin
CPT/HCPCS: 36415; 36600; J3490; S0017; 71045; 71046; 80048; 80053; 81003; 82040; 82330; 82800; 82803; 82810; 82947; 82962; 83036; 83735; 84132; 84295; 85014; 85018; 85025; 85049; 85347; 85610; 85730; 86850; 86900; 86923; 87081; 93005; 93312; 93321; 93325; 93880; 94002; C1760; G0378; J1644; J1815; J1885; J1940; J2250; J2405; J2704; J2720; J3010; J3370; J3475; J3480; J7060; P9045; P9047; C1751; J0171; J0282; J0780; J2270; J2370; J2930; J7050

== ENCOUNTER 2018-08-22 13:38 | Outpatient (CLI) | payer OTHER ==
[~2018-08-22 13:38] MED LIST changes: +FURO-92 PO; +HYDR-3237 PO; +HYDR-3240 PO; +POTA20TA14 PO; +WARF5TAB PO-COUM
== END 2018-08-22 23:59 | disposition home or self-care (01) ==
LOC: CVU 13:38
PROVIDERS: ATTEND Internal Medicine Cardiovascular Disease
DX: I08.3 Combined rheumatic disorders of mitral, aortic and tricuspid valves (principal); I11.9 Hypertensive heart disease without heart failure; Z95.1 Presence of aortocoronary bypass graft
CPT/HCPCS: 93306

== ENCOUNTER → 2019-09-16 | Outpatient (CLI) | payer OTHER ==
[~2019-09-16] MED LIST changes: -WARF5TAB PO-COUM; +WARF5TAB2 PO-COUM
== END | disposition home or self-care (01) ==
LOC: CVU 15:19
PROVIDERS: ATTEND Physician Assistant Medical
DX: I08.2 Rheumatic disorders of both aortic and tricuspid valves (principal); I11.9 Hypertensive heart disease without heart failure; I42.9 Cardiomyopathy, unspecified
CPT/HCPCS: 93306

== ENCOUNTER 2020-01-02 09:33 | Emergency (ER) | payer OTHER ==
[~2020-01-02] VITALS: Ht 180.3 cm; Wt 106.4 kg
--- NOTE | 2020-01-02 10:02 | NUR ---
PT CAME IN CO OF HEART PALPITATIONS AND CHEST PAIN WITH MOVEMENT. PT FOUND TO BE IN AFIB. PT HAS HX OF AFIB AND TAKES ELIQUIS AND METOPROLOL FOR IT. PT STATES "USUALLY THE MEDS KEEP IT UNDER CONTROL BUT THEY HAVENT BEEN WORKING. I HAVE BEEN FEELING THIS WAY FOR A WEEK". PT RESTING IN [facility]. LAB IN WITH PT. PT CONNECTED TO ALL MONITORING EQUIPMENT
[2020-01-02 10:15] LABS: BASOPHILS % (AUTO) 1 % (0-1); EOSINOPHILS % (AUTO) 2 % (1-7); LYMPHOCYTES % (AUTO) 18 % (22-44); MEAN CORPUSCULAR HEMOGLOBIN 31.5 pg (27.5-34.5); MEAN CORPUSCULAR HGB CONC 33.9 g/dL (33.2-36.2); MEAN PLATELET VOLUME 10.5 fL (7.4-10.4); MONOCYTES % (AUTO) 10 % (2-9); NEUTROPHILS % (AUTO) 70 % (42-75); PLATELET COUNT 145 x10^3/uL (130-400); RED BLOOD COUNT 4.74 x10^6/uL (4.38-5.82); RED CELL DISTRIBUTION WIDTH 13.6 % (9.4-14.8)
[2020-01-02 10:17] LABS: MD NO
[2020-01-02] MEDS ORDERED: PROPOFOL 10 MG/ML, 20ML ONE (10:18)
[2020-01-02 10:26] LABS: ALBUMIN 3.7 g/dL (3.4-5.0); ANION GAP 7 mmol/L (5-15); CALCIUM 8.6 mg/dL (8.5-10.1); CHLORIDE 113 mmol/L (98-107); CREATININE 1.31 mg/dL (0.7-1.3)
[2020-01-02 10:29] LABS: TROPONIN I < 0.015 ng/mL (0.000-0.045)
[2020-01-02] MEDS ORDERED: PROPOFOL 10 MG/ML, 20ML IVPush ONE (11:00)
--- NOTE | 2020-01-02 11:21 | NUR ---
PT TO BE CARDIOVERTED. ALL SAFETY MEASURES IN PLACE - SUCTION, AMBU BAGM, CRASH CART, IV ACCESS, END TIDAL MONITORING, O2 VIA NC. PRESENT FOR PROCEDURE. 60MG PROPOFOL ADM. PT CONVERTED TO A SINUS RHYTHM AFTER 1 SHOCK AT 200JOULES. PT TOLERATED WELL. PT RESTING IN GURNEY. AOX4. PT STATES HE IS FREE OF PAIN. SEE PRINT OUT FOR VS
--- NOTE | 2020-01-02 11:56 | NUR ---
REPORT RECEIVED FROM MARIAH MARTIN FOR TRANSFER OF PATIENT CARE.
--- NOTE | 2020-01-02 12:55 | NUR ---
PATIENT RESTING IN GURNEY, CONNECTED TO ERISA ATTORNEY, NO SIGNS OF ACUTE DISTRESS, PATIENT REPORTS FEELING "BETTER." CALL LIGHT WITHIN REACH.
[2020-01-02 13:23] VITALS: BP 137/94
--- NOTE | 2020-01-02 13:25 | NUR ---
Patient given discharge instructions and they have confirmed that they understand the instructions, all questions answered. Patient ambulatory with steady gait from ED to private vehicle, son is driving.
== END 2020-01-02 13:26 | disposition home or self-care (01) ==
LOC: ED 10:45
DX: I48.91 Unspecified atrial fibrillation (principal); R55 Syncope and collapse; R06.00 Dyspnea, unspecified; I49.3 Ventricular premature depolarization
CPT/HCPCS: 36415; 71045; 80048; 82040; 84484; 85025; 92960; 93005; 99152; 99291

== ENCOUNTER 2020-01-19 14:32 | Inpatient (IN) | payer OTHER ==
[~2020-01-19] VITALS: Ht 180.3 cm; Wt 106.6 kg
--- NOTE | 2020-01-19 14:55 | NUR ---
assumed care of pt. pt here c/o palpitations that started yesterday and CP earlier today with SOB. 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 pt reports that he is not usualy in A-fib and hsa had a previos cardioversion for same. pt reports that he is complaint with his eliquis and metoprolol. pt in no resp. distress. reports that he is currently almost pain free. pt resting in position of comfort. pick warm and dry no family at bedside
--- NOTE | 2020-01-19 15:10 | NUR ---
IV started with lab draw. CXR at bedside
[2020-01-19] MEDS ORDERED: METOPROLOL 1 MG/ML, 5ML IVPush ONE (15:30)
[2020-01-19 15:31] LABS: ALANINE AMINOTRANSFERASE 33 U/L (12-78); ALBUMIN 3.8 g/dL (3.4-5.0); ANION GAP 6 mmol/L (5-15); CALCIUM 8.7 mg/dL (8.5-10.1); CHLORIDE 113 mmol/L (98-107); CREATININE 1.07 mg/dL (0.7-1.3)
[2020-01-19 15:33] LABS: BASOPHILS % (AUTO) 1 % (0-1); EOSINOPHILS % (AUTO) 3 % (1-7); LYMPHOCYTES % (AUTO) 22 % (22-44); MEAN CORPUSCULAR HEMOGLOBIN 31.1 pg (27.5-34.5); MEAN CORPUSCULAR HGB CONC 34.1 g/dL (33.2-36.2); MEAN PLATELET VOLUME 10.9 fL (7.4-10.4); MONOCYTES % (AUTO) 9 % (2-9); NEUTROPHILS % (AUTO) 66 % (42-75); PLATELET COUNT 143 x10^3/uL (130-400); RED BLOOD COUNT 4.65 x10^6/uL (4.38-5.82); RED CELL DISTRIBUTION WIDTH 13.6 % (9.4-14.8)
[2020-01-19 15:35] LABS: MD NO
[2020-01-19 15:36] LABS: ALKALINE PHOSPHATASE 83 U/L (45-117); BILIRUBIN,TOTAL 0.7 mg/dL (0.2-1.0); TOTAL PROTEIN 6.4 g/dL (6.4-8.2); TROPONIN I < 0.015 ng/mL (0.000-0.045)
--- NOTE | 2020-01-19 15:46 | NUR ---
pt to RAD
[2020-01-19] MEDS ORDERED: OMNIPAQUE 350 MG/ML, 100ML BOTTLE ONE (16:05)
[2020-01-19] MEDS ORDERED: METOPROLOL 1 MG/ML, 5ML ONE (16:06)
--- NOTE | 2020-01-19 16:21 | NUR ---
pt has been medicated per order. urinal given per request. lights dimmed for comfort and pt updated on POC awaiting test results
--- NOTE | 2020-01-19 16:45 | NUR ---
no changes. pt resting in position of comfort. no new c/o. no apparent distress.
--- NOTE | 2020-01-19 17:30 | NUR ---
pt to be admitted for evaluation. pt updated on POC. resting in position of comfort. no new c/o
[2020-01-19] MEDS ORDERED: APIX5TAB PO (18:06)
--- NOTE | 2020-01-19 18:40 | NUR ---
hospitalist at bedside to eval for admission security at bedside for pt wallet and agarwal to safe
--- NOTE | 2020-01-19 18:55 | NUR ---
awaiting bed assignment. report to Sheri LEMUS
[2020-01-19] MEDS: SOTALOL 80MG TABLET PO SCH (18:57)
--- NOTE | 2020-01-19 19:02 | NUR ---
RECEIVED REPORT FROM MARIAH BORGES TO ASSUME CARE OF PT. VS UPDATED. MANUAL B/P TAKEN. PT. DENIES PAIN. MEDICATED PER MAR. PT. DENIES NEEDS AT THIS TIME. CALL LIGHT IN REACH. ALL MONITORS IN PLACE.
--- NOTE | 2020-01-19 19:28 | NUR ---
MED REQ REVIEWED WITH PT. AND UPDATED TO THE BEST OF PT. ABILITY. PT. PROVIDED WITH SANDWICH, CHIPS, AND BOTTLE WATER FROM [employer] CART. DENIES OTHER NEEDS AT THIS TIME. NO DISTRESS NOTED. CALL LIGHT IN REACH.
[2020-01-19] MEDS ORDERED: ACETAMINOPHEN 325 MG TABLET PO PRN (19:30)
[2020-01-19] MEDS ORDERED: DOCUSATE 100 MG CAPSULE PO PRN (19:30)
[2020-01-19] MEDS ORDERED: MELATONIN 5 MG TABLET PO PRN (19:30)
--- NOTE | 2020-01-19 20:09 | NUR ---
PT. ATE ALL OF FOOD PROVIDED. PT. DENIES ANY NEEDS AT THIS TIME. HOSPITAL BED REQUESTED FOR PT. COMFORT.
--- NOTE | 2020-01-19 20:45 | NUR ---
HOSPITAL BED PROVIDED TO PT. FOR COMFORT. PT. DENIES ANY FURHTER NEEDS. ALL SAFETY MEASURES OBSERVED.
[2020-01-19 21:55] LABS: TROPONIN I < 0.015 ng/mL (0.000-0.045)
--- NOTE | 2020-01-19 22:52 | NUR ---
Assist RN: Patient sleeping in hospital bed. Respirations even and unlabored. No complaints/needs at this time.
--- NOTE | 2020-01-19 22:53 | NUR ---
RECEIVED REPORT BACK FROM MARIAH CHRISTINA TO REASSUME CARE OF PT. AT THIS TIME.
--- NOTE | 2020-01-20 00:35 | NUR ---
PT. RESTING ON BED WITH EYES CLOSED. NO DISTRESS NOTED. CARDIAC/SPO2 MONITORS REMAIN IN PLACE. ALL SAFETY MEASURES MAINTAINED.
[2020-01-20 03:39] LABS: BASOPHILS % (AUTO) 1 % (0-1); EOSINOPHILS % (AUTO) 4 % (1-7); LYMPHOCYTES % (AUTO) 23 % (22-44); MEAN CORPUSCULAR HEMOGLOBIN 31.6 pg (27.5-34.5); MEAN CORPUSCULAR HGB CONC 34.6 g/dL (33.2-36.2); MEAN PLATELET VOLUME 10.9 fL (7.4-10.4); MONOCYTES % (AUTO) 11 % (2-9); NEUTROPHILS % (AUTO) 62 % (42-75); PLATELET COUNT 142 x10^3/uL (130-400); RED BLOOD COUNT 4.47 x10^6/uL (4.38-5.82); RED CELL DISTRIBUTION WIDTH 13.2 % (9.4-14.8)
[2020-01-20 03:41] LABS: MD NO
[2020-01-20 03:43] LABS: ANION GAP 4 mmol/L (5-15); CALCIUM 8.6 mg/dL (8.5-10.1); CHLORIDE 113 mmol/L (98-107)
[2020-01-20 03:53] LABS: TROPONIN I < 0.015 ng/mL (0.000-0.045)
--- NOTE | 2020-01-20 04:00 | NUR ---
PT. PROVIDED WITH MORE BOTTLE WATER PER REQUEST. DENIES OTHER NEEDS.
[2020-01-20] MEDS: SOTALOL 80MG TABLET PO SCH ×2 (06:13→17:32)
--- NOTE | 2020-01-20 06:15 | NUR ---
VS UPDATED. PT. MEDICATED PER MAR. TOTAL URINE OUTPUT THIS SHIFT 1100ML OF CLEAR YELLOW URINE. PT. DENIES NEEDS AT THIS TIME. CALL LIGHT IN REACH.
--- NOTE | 2020-01-20 07:05 | NUR ---
REPORT FROM MARIAH GREEN
--- NOTE | 2020-01-20 08:14 | NUR ---
PT BREAKFAST DELIVERED. VSS. PT STATES NO CP OR SOB AT THIS TIME. PHYSICAL EXAM COMPLETED.
[2020-01-20] MEDS ORDERED: APIXABAN 5 MG TABLET ONE (08:44)
[2020-01-20] MEDS: APIXABAN 5 MG TABLET PO SCH ×2 (08:46→20:40)
--- NOTE | 2020-01-20 09:37 | NUR ---
PT RESTING ON HOSPITAL BED, WATCHING TV. NO APPARENT DISTRESS. ALL NEEDS MET AT THIS TIME.
--- NOTE | 2020-01-20 12:26 | NUR ---
diet tray delivered to pt
--- NOTE | 2020-01-20 12:42 | NUR ---
PT PROVIDED LUNCH. NO APPARENT DISTRESS. ALL PT'S NEEDS MET AT THIS TIME.
--- NOTE | 2020-01-20 13:53 | NUR ---
PHONE REPORT MADE TO MARIAH DELAROSA
[2020-01-20 15:03] VITALS: BP 136/94
[2020-01-20 15:06] VITALS: BP 136/94
[2020-01-20 17:33] VITALS: BP 147/98
[2020-01-20 21:09] VITALS: BP_SYST 105; BP_SYST 133; BP_DIAS 66; BP_DIAS 90
[2020-01-21 01:57] VITALS: BP 136/85
[2020-01-21 05:52] VITALS: BP 117/86
[2020-01-21] MEDS: SOTALOL 80MG TABLET PO SCH ×2 (05:52→18:00)
[2020-01-21 08:42] VITALS: BP 122/81
[2020-01-21] MEDS: APIXABAN 5 MG TABLET PO SCH (09:12)
[2020-01-21 13:52] VITALS: BP 120/88
[2020-01-21] MEDS ORDERED: PROPOFOL 10 MG/ML, 20ML ONE (14:33)
[2020-01-21] MEDS ORDERED: SOTA80TA18 PO (15:28)
== END 2020-01-21 18:41 | disposition home or self-care (01) | DRG 309 ==
LOC: ED 17:06 → EDIP 17:07 → 5SO 01-20 14:58
PROVIDERS: ADMIT Internal Medicine; ATTEND Hospitalist
PROC: 5A2204Z Restoration of Cardiac Rhythm, Single (ICD-10-PCS; principal; 2020-01-21)
DX: I48.19 Other persistent atrial fibrillation (principal); D68.59 Other primary thrombophilia; I50.20 Unspecified systolic (congestive) heart failure; I11.0 Hypertensive heart disease with heart failure; I25.10 Atherosclerotic heart disease of native coronary artery without angina pectoris; I51.3 Intracardiac thrombosis, not elsewhere classified; Z79.01 Long term (current) use of anticoagulants; Z80.3 Family history of malignant neoplasm of breast; Z80.8 Family history of malignant neoplasm of other organs or systems; Z87.891 Personal history of nicotine dependence; Z95.1 Presence of aortocoronary bypass graft; Z95.2 Presence of prosthetic heart valve
CPT/HCPCS: 36415; 71045; 71275; 80048; 80053; 83735; 83880; 84100; 84443; 84484; 85025; 92960; 93005; G0378; J2704; Q9967

== ENCOUNTER → 2020-08-11 | Outpatient (CLI) | payer OTHER ==
[~2020-08-11] MED LIST changes: -ASPI-650 PO; +ASPI325T20 PO; +HYDR-2214 PO; -HYDR-3240 PO; +REGADENOSON 0.4 MG/5 ML SYRINGE ONE; +SOTA80TA18 PO
== END | disposition home or self-care (01) ==
LOC: CFH 07:22
PROVIDERS: ATTEND Physician Assistant Medical
DX: Z01.810 Encounter for preprocedural cardiovascular examination (principal); I25.9 Chronic ischemic heart disease, unspecified
CPT/HCPCS: 78452; 93017; A9502; J2785

== ENCOUNTER → 2020-08-13 | Day surgery (SDC) | payer OTHER ==
[~2020-08-13] MED LIST changes: -REGADENOSON 0.4 MG/5 ML SYRINGE ONE
== END | disposition home or self-care (01) ==
LOC: CACL 10:36
PROVIDERS: ATTEND Internal Medicine Cardiovascular Disease
DX: Z02.9 Encounter for administrative examinations, unspecified (principal)

== ENCOUNTER 2020-09-01 08:02 | Inpatient (IN) | payer OTHER ==
[~2020-09-01] VITALS: Ht 180.3 cm; Wt 107.0 kg
[2020-09-01] MEDS ORDERED: SODIUM CHLORIDE FLUSH 10ML SYR IVF ONE (09:00)
--- NOTE | 2020-09-01 09:00 | NUR ---
sheet given for comfort, denies any other needs
[2020-09-01 09:16] LABS: CHLORIDE 107 mmol/L (98-107); CREATININE 0.96 mg/dL (0.7-1.3)
[2020-09-01 09:29] LABS: BASOPHILS % (AUTO) 1 % (0-1); EOSINOPHILS % (AUTO) 5 % (1-7); LYMPHOCYTES % (AUTO) 22 % (22-44); MEAN CORPUSCULAR HEMOGLOBIN 32.7 pg (27.5-34.5); MEAN CORPUSCULAR HGB CONC 35.2 g/dL (33.2-36.2); MEAN PLATELET VOLUME 10.9 fL (7.4-10.4); MONOCYTES % (AUTO) 10 % (2-9); NEUTROPHILS % (AUTO) 63 % (42-75); PLATELET COUNT 140 x10^3/uL (130-400); RED BLOOD COUNT 5.03 x10^6/uL (4.38-5.82); RED CELL DISTRIBUTION WIDTH 13.3 % (9.4-14.8)
[2020-09-01 09:33] LABS: ANION GAP 5 mmol/L (5-15); TROPONIN I < 0.015 ng/mL (0.000-0.045)
--- NOTE | 2020-09-01 09:51 | NUR ---
DR TEJADA SPOKE WITH DR Ama STRICKLAND
[2020-09-01] MEDS ORDERED: ATOR20TA37 PO (10:23)
[2020-09-01] MEDS ORDERED: VALS80TA30 PO (10:23)
[2020-09-01] MEDS ORDERED: GUAIFENESIN/DM 200-20MG, 10ML UDC PO PRN (10:30)
[2020-09-01] MEDS ORDERED: BUTALB/APAP/CAFFEINE 50MG/325MG/40MG PO PRN ×2 (10:30)
[2020-09-01] MEDS ORDERED: ONDANSETRON 2MG/ML, 2ML IVPush PRN (10:30)
[2020-09-01] MEDS ORDERED: HYDROcodone/APAP 5/325 TABLET PO PRN (10:30)
[2020-09-01] MEDS ORDERED: LIDODERM 5% PATCH TD PRN (10:30)
[2020-09-01] MEDS ORDERED: BACLOFEN 10 MG TABLET PO PRN (10:30)
[2020-09-01] MEDS ORDERED: ACETAMINOPHEN 325 MG TABLET PO PRN (10:30)
[2020-09-01] MEDS ORDERED: ONDANSETRON ODT 4 MG PO PRN (10:30)
[2020-09-01] MEDS ORDERED: SODIUM CHLORIDE FLUSH 10ML SYR IVF PRN (10:30)
[2020-09-01] MEDS ORDERED: ENALAPRILAT 1.25 MG/ML, 2ML IVPush PRN (10:30)
[2020-09-01] MEDS ORDERED: D5%-0.45NACL+KCL 20MEQ 1,000 ML IV ONE (11:30)
[2020-09-01 11:39] VITALS: BP 149/82
[2020-09-01] MEDS: SODIUM CHLORIDE 0.9% 1,000 ML IV SCH ×2 (13:03→23:33)
[2020-09-01 14:56] VITALS: BP 158/96
[2020-09-01] MEDS ORDERED: FENTANYL PF 100 MCG/2ML ONE (15:11)
[2020-09-01] MEDS ORDERED: LIDOCAINE 1%, 20ML ONE (15:11)
[2020-09-01] MEDS ORDERED: BIVALIRUDIN 250 MG ONE (15:11)
[2020-09-01] MEDS ORDERED: MIDAZOLAM 1 MG/ML, 5ML ONE (15:11)
[2020-09-01] MEDS ORDERED: DIPHENHYDRAMINE 50 MG/ML, 1ML ONE (15:39)
[2020-09-01] MEDS ORDERED: HEPARIN 1,000 UNITS/ML, 10ML ONE (15:45)
[2020-09-01] MEDS: hydrALAzine 20 MG/ML, 1ML IVPush PRN (18:06)
[2020-09-01 20:00] VITALS: BP 168/106
[2020-09-01 20:52] VITALS: BP 148/90
[2020-09-01] MEDS ORDERED: MELATONIN 5 MG TABLET PO SCH (21:00)
[2020-09-02 02:00] VITALS: BP 134/78
[2020-09-02 05:18] LABS: BASOPHILS % (AUTO) 1 % (0-1); CHLORIDE 109 mmol/L (98-107); EOSINOPHILS % (AUTO) 5 % (1-7); LYMPHOCYTES % (AUTO) 19 % (22-44); MEAN CORPUSCULAR HEMOGLOBIN 32.7 pg (27.5-34.5); MEAN CORPUSCULAR HGB CONC 35.6 g/dL (33.2-36.2); MEAN PLATELET VOLUME 10.3 fL (7.4-10.4); MONOCYTES % (AUTO) 11 % (2-9); NEUTROPHILS % (AUTO) 65 % (42-75); PLATELET COUNT 108 x10^3/uL (130-400); RED BLOOD COUNT 4.83 x10^6/uL (4.38-5.82); RED CELL DISTRIBUTION WIDTH 12.9 % (9.4-14.8)
[2020-09-02 05:29] LABS: ALANINE AMINOTRANSFERASE 27 U/L (12-78); ALBUMIN 3.4 g/dL (3.4-5.0); ALKALINE PHOSPHATASE 68 U/L (45-117); ANION GAP 5 mmol/L (5-15); BILIRUBIN,TOTAL 0.9 mg/dL (0.2-1.0); CALCIUM 8.7 mg/dL (8.5-10.1); CREATININE 0.92 mg/dL (0.7-1.3); TOTAL PROTEIN 6.4 g/dL (6.4-8.2)
[2020-09-02 07:40] VITALS: BP 156/99
[2020-09-02 07:49] VITALS: BP 161/101
[2020-09-02] MEDS: hydrALAzine 20 MG/ML, 1ML IVPush PRN (08:11)
[2020-09-02] MEDS ORDERED: SENNA/DOCUSATE TABLET PO SCH (09:00)
== END 2020-09-02 14:42 | disposition home or self-care (01) | DRG 287 ==
LOC: ED 09:09 → 5SO 10:24
PROVIDERS: ADMIT Internal Medicine Gastroenterology; ATTEND Family Medicine
PROC: 4A023N7 Measurement of Cardiac Sampling and Pressure, Left Heart, Percutaneous Approach (ICD-10-PCS; principal; 2020-09-01)
PROC: B2111ZZ Fluoroscopy of Multiple Coronary Arteries using Low Osmolar Contrast (ICD-10-PCS; 2020-09-01)
PROC: B2151ZZ Fluoroscopy of Left Heart using Low Osmolar Contrast (ICD-10-PCS; 2020-09-01)
PROC: B2131ZZ Fluoroscopy of Multiple Coronary Artery Bypass Grafts using Low Osmolar Contrast (ICD-10-PCS; 2020-09-01)
PROC: B2181ZZ Fluoroscopy of Left Internal Mammary Bypass Graft using Low Osmolar Contrast (ICD-10-PCS; 2020-09-01)
DX: I25.110 Atherosclerotic heart disease of native coronary artery with unstable angina pectoris (principal); D68.69 Other thrombophilia; I50.9 Heart failure, unspecified; I11.0 Hypertensive heart disease with heart failure; F12.90 Cannabis use, unspecified, uncomplicated; E78.5 Hyperlipidemia, unspecified; I42.9 Cardiomyopathy, unspecified; I48.0 Paroxysmal atrial fibrillation; Z79.01 Long term (current) use of anticoagulants; Z95.2 Presence of prosthetic heart valve; Z95.1 Presence of aortocoronary bypass graft; Z88.0 Allergy status to penicillin; Z82.49 Family history of ischemic heart disease and other diseases of the circulatory system; Z79.899 Other long term (current) drug therapy
CPT/HCPCS: 36415; 93459; 96374; 99285; J3490; 71045; 80048; 80053; 82040; 83735; 84100; 84484; 85025; 93005; 99156; C1760; C1769; C1894; G0378; J0583; J1644; J2250; J3010; J0360; J1200; J3480; Q9967